=== PATIENT | male | born 1950 | race Caucasian/White ===

== ENCOUNTER → 2025-05-15 10:18 | Outpatient (REF) | payer MEDICARE, SELFPAY ==
[2025-05-15 11:30] LABS: Hematocrit 30.8 % (39.0-52.0); Hemoglobin 10.3 g/dL (13.0-18.0); Mean Corp Hgb Conc. 33.4 g/dL (33.0-37.0); Mean Corpuscular Volume 89.3 fL (80.0-94.0); Nucleated Red Blood Cells % 0 % (-); Platelet Count 231 10^3/uL (130-400); Red Cell Dist. Width 11.9 % (11.5-14.5)
[2025-05-15 11:54] LABS: Blood Urea Nitrogen 34 mg/dl (9-20); Calcium 8.3 mg/dl (8.4-10.2); Carbon Dioxide 24 mmol/L (22-30); Chloride 106 mmol/L (98-107); Glucose 134 mg/dl (70-99); Iron 55 ug/dl (49-181); Potassium 4.1 mmol/L (3.5-5.1); Sodium 137 mmol/L (135-145); Uric Acid 5.0 mg/dl (3.5-8.5); eGFR 26.14
[2025-05-15 12:03] LABS: Total Iron Binding Capacity 292 ug/dl (261-462)
[2025-05-17 21:32] LABS: 24 Hour Urine Total Volume Random mL; Urine Collection Length Random hr
== END ==
LOC: RAD 10:18
PROVIDERS: ATTENDING PHYSICIAN Internal Medicine Nephrology; FAMILY PHYSICIAN Family Medicine
DX: N17.9 Acute kidney failure, unspecified (principal); N18.32 Chronic kidney disease, stage 3b
CPT/HCPCS: 36415; 76770; 80048; 82570; 82784; 83520; 83521; 83540; 83550; 83970; 84155; 84156; 84165; 84550; 85025; 86334; 86335